=== PATIENT | female | born 1975 | race Caucasian/White ===

== ENCOUNTER 2017-03-13 22:09 | Emergency (ER) | payer OTHER ==
[2017-03-13 22:25] VITALS: BP 106/55; RESP 18; TEMP 98
[2017-03-13] MEDS ORDERED: Acetaminophen-Codeine 300-30mg TAB PO STA (22:39)
[2017-03-13] MEDS ORDERED: ACETAMINOPHEN TAB 325 MG TAB PO STA (22:39)
[2017-03-13] MEDS ORDERED: IPRATROPIUM-ALBUTEROL 3 ML NEB INHALATION STA (22:39)
[2017-03-13] MEDS ORDERED: DEXAMETHASONE SOD PHOSPHATE 10 MG/ML 1 ML VIAL IM STA (22:39)
[2017-03-13] MEDS ORDERED: IBUPROFEN 800 MG TAB PO STA (22:39)
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
[2017-03-13] MEDS ORDERED: ALBUTEROL NEB (CONC) 2.5 MG/0.5 ML INHALATION STA (22:50)
[2017-03-13] MEDS ORDERED: IPRATROPIUM 0.5 MG/2.5 ML NEBU INHALATION STA (22:51)
[2017-03-13 23:16] VITALS: PULSE 88
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
== END 2017-03-14 00:21 | disposition home or self-care (01) ==
LOC: EC 22:09
DX: J45.909 Unspecified asthma, uncomplicated (principal); J20.9 Acute bronchitis, unspecified; J06.9 Acute upper respiratory infection, unspecified; F41.9 Anxiety disorder, unspecified; F17.210 Nicotine dependence, cigarettes, uncomplicated; Z79.899 Other long term (current) drug therapy; Z88.0 Allergy status to penicillin; Z83.6 Family history of other diseases of the respiratory system
CPT/HCPCS: 94640; 71020; 99284; 96372; J1100

== ENCOUNTER 2017-05-04 11:39 | Emergency (ER) | payer OTHER ==
[2017-05-04] MEDS ORDERED: KETOROLAC 60 MG/2 ML VIAL IM STA (12:05)
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
[2017-05-04 13:14] VITALS: BP 122/83; PULSE 93; RESP 18; TEMP 98
== END 2017-05-04 13:14 | disposition home or self-care (01) ==
LOC: EC 11:39
DX: S83.92XA Sprain of unspecified site of left knee, initial encounter (principal); S93.402A Sprain of unspecified ligament of left ankle, initial encounter; F17.200 Nicotine dependence, unspecified, uncomplicated; Z88.0 Allergy status to penicillin; X50.1XXA Overexertion from prolonged static or awkward postures, initial encounter; Y93.53 Activity, golf
CPT/HCPCS: 99283; 96372; 73562; 73610; J1885

== ENCOUNTER → 2017-07-04 | Outpatient (CLI) | payer OTHER ==
--- NOTE | 2017-07-05 11:25 | MM ---
Reason for exam: screening (asymptomatic). Last mammogram was performed 1 year ago. History: Patient has history of other cancer at age 23. Family history of breast cancer in 3 maternal aunts and breast cancer in paternal aunt. Physical Findings: A clinical breast exam by your physician is recommended on an annual basis and results should be correlated with mammographic findings. MG Screening Mammo w CAD Bilateral CC and MLO view(s) were taken. Prior study comparison: June 29, 2016, bilateral MG screening mammo w CAD. June 17, 2015, bilateral MG screening mammo w CAD. The breast tissue is heterogeneously dense. This may lower the sensitivity of mammography. No suspicious abnormality. ASSESSMENT: Negative, BI-RAD 1 RECOMMENDATION: Routine screening mammogram of both breasts in 1 year.
== END | disposition home or self-care (01) ==
LOC: RADMAMWWP 13:12
PROVIDERS: ATTEND Internal Medicine
DX: Z12.31 Encounter for screening mammogram for malignant neoplasm of breast (principal)

== ENCOUNTER → 2018-01-01 | Outpatient (CLI) | payer OTHER ==
--- NOTE | 2018-01-01 11:56 | XR ---
EXAMINATION TYPE: XR foot complete RT DATE OF EXAM: 01/01/2018 COMPARISON: NONE HISTORY: Pain TECHNIQUE: Three views are submitted. FINDINGS: The osseous structures are intact and the joint spaces are preserved. There is no acute fracture or dislocation. IMPRESSION: 1. No acute fracture or dislocation. If symptoms persist, follow-up exam in 7 to 10 days could be ob tained.
== END | disposition home or self-care (01) ==
LOC: RADXRMAIN 11:25
PROVIDERS: ATTEND Internal Medicine
DX: M79.671 Pain in right foot (principal); R22.41 Localized swelling, mass and lump, right lower limb

== ENCOUNTER 2018-01-18 00:05 | Emergency (ER) | payer OTHER ==
[2018-01-18] MEDS ORDERED: NITROGLYCERIN OINT 1 INCH/GM PACKET TOPICAL STA (00:28)
[2018-01-18] MEDS ORDERED: MORPHINE SULFATE 4 MG/ML SYRINGE IV STA (00:28)
[2018-01-18] MEDS ORDERED: ONDANSETRON 4 MG/2 ML VIAL IVP STA (00:28)
[2018-01-18] MEDS ORDERED: SODIUM CHLORIDE 0.9% 1,000 ML IV STA (00:28)
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
[2018-01-18 00:39] LABS: Basophils # (A) 0.1 k/uL (0-0.2); Basophils % (A) 1 %; Eosinophils # (A) 0.2 k/uL (0-0.7); Eosinophils % (A) 1 %; HCT 43.2 % (34.0-46.0); HGB 14.9 gm/dL (11.4-16.0); Lymphocytes # (A) 4.7 k/uL (1.0-4.8); Lymphocytes % (A) 34 %; MCH 30.1 pg (25.0-35.0); MCHC 34.5 g/dL (31.0-37.0); MCV 87.2 fL (80.0-100.0); Monocytes # (A) 0.7 k/uL (0-1.0); Monocytes % (A) 5 %; Neutrophils # (A) 7.8 k/uL (1.3-7.7); Neutrophils % (A) 57 %; Platelet Count 305 k/uL (150-450); RBC 4.95 m/uL (3.80-5.40); RDW 13.3 % (11.5-15.5); WBC 13.6 k/uL (3.8-10.6)
[2018-01-18 00:48] LABS: ALT 26 U/L (9-52); AST 15 U/L (14-36); Alkaline Phosphatase 101 U/L (38-126); Anion Gap 9 mmol/L; Blood Urea Nitrogen 13 mg/dL (7-17); Calcium 9.6 mg/dL (8.4-10.2); Carbon Dioxide 24 mmol/L (22-30); Chloride 106 mmol/L (98-107); Glucose 105 mg/dL (74-99); Magnesium 1.8 mg/dL (1.6-2.3); Potassium 4.2 mmol/L (3.5-5.1); Sodium 139 mmol/L (137-145); Total Bilirubin 0.2 mg/dL (0.2-1.3); Total Protein 7.1 g/dL (6.3-8.2)
[2018-01-18 00:53] LABS: D-Dimer 0.38 mg/L FEU (<0.60)
[2018-01-18 00:57] LABS: INR 0.9 (<1.2); Partial Thromboplastin Time 23.8 sec (22.0-30.0); Prothrombin Time 9.4 sec (9.0-12.0)
[2018-01-18 00:58] LABS: Creatine Kinase 45 U/L (30-135)
[2018-01-18 01:12] LABS: Creatine Kinase MB 0.4 ng/mL (0.0-2.4); Troponin I <0.012 ng/mL (0.000-0.034)
--- NOTE | 2018-01-18 01:20 | CT ---
EXAMINATION TYPE: CT brain wo con DATE OF EXAM: 01/18/2018 COMPARISON: NONE HISTORY: headache CT DLP: 926.50 mGycm. Automated Exposure Control for Dose Reduction was Utilized. TECHNIQUE: CT scan of the head is performed without contrast. FINDINGS: Ventricles and sulci appear normal. There is no mass effect nor midline shift. There is n o sign of intracranial hemorrhage. The calvarium is intact. CONCLUSION: Normal CT scan of the brain.
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
[2018-01-18 01:56] VITALS: BP 135/78; PULSE 98; RESP 18; TEMP 98.2
== END 2018-01-18 01:56 | disposition home or self-care (01) ==
LOC: EC 00:05
DX: J40 Bronchitis, not specified as acute or chronic (principal); I10 Essential (primary) hypertension; R51 Headache; D72.829 Elevated white blood cell count, unspecified; F41.9 Anxiety disorder, unspecified; R07.81 Pleurodynia; M79.601 Pain in right arm; M79.602 Pain in left arm; F17.200 Nicotine dependence, unspecified, uncomplicated; Z88.0 Allergy status to penicillin; Z97.8 Presence of other specified devices; Z82.5 Family history of asthma and other chronic lower respiratory diseases; Z82.49 Family history of ischemic heart disease and other diseases of the circulatory system
CPT/HCPCS: 99285; 96374; 96375; 96361; 36415; 93005; 85379; 80053; 82550; 82553; 83735; 84484; 85025; 85610; 85730; 71046; 70450; J2270; J2405

== ENCOUNTER 2018-04-08 14:53 | Observation (INO) | payer OTHER ==
[2018-04-08] MEDS ORDERED: ASPIRIN 81 MG PO STA (15:29)
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
[2018-04-08] MEDS: NITROGLYCERIN SL TABS 0.4 MG TAB SUBLINGUAL STA ×2 (16:13→16:23)
[2018-04-08 16:18] LABS: Basophils # (A) 0.1 k/uL (0-0.2); Basophils % (A) 0 %; Eosinophils # (A) 0.1 k/uL (0-0.7); Eosinophils % (A) 1 %; HCT 45.5 % (34.0-46.0); Lymphocytes # (A) 3.3 k/uL (1.0-4.8); Lymphocytes % (A) 27 %; MCH 29.7 pg (25.0-35.0); MCV 90.1 fL (80.0-100.0); Mean Platelet Volume 6.5; Monocytes # (A) 0.5 k/uL (0-1.0); Monocytes % (A) 4 %; Neutrophils # (A) 8.2 k/uL (1.3-7.7); Neutrophils % (A) 67 %; Platelet Count 272 k/uL (150-450); RBC 5.05 m/uL (3.80-5.40); RDW 13.9 % (11.5-15.5); WBC 12.2 k/uL (3.8-10.6)
[2018-04-08 16:20] LABS: ALT 26 U/L (9-52); AST 22 U/L (14-36); Albumin 4.2 g/dL (3.5-5.0); Alkaline Phosphatase 95 U/L (38-126); Anion Gap 11 mmol/L; Blood Urea Nitrogen 6 mg/dL (7-17); Calcium 9.3 mg/dL (8.4-10.2); Carbon Dioxide 20 mmol/L (22-30); Chloride 108 mmol/L (98-107); Glucose 95 mg/dL (74-99); Magnesium 1.7 mg/dL (1.6-2.3); Potassium 4.4 mmol/L (3.5-5.1); Sodium 139 mmol/L (137-145); Total Bilirubin 0.5 mg/dL (0.2-1.3); Total Protein 6.9 g/dL (6.3-8.2)
[2018-04-08 16:27] LABS: D-Dimer 0.32 mg/L FEU (<0.60); Partial Thromboplastin Time 22.8 sec (22.0-30.0); Prothrombin Time 9.6 sec (9.0-12.0)
[2018-04-08 16:30] LABS: Creatine Kinase 48 U/L (30-135)
[2018-04-08 16:43] LABS: Creatine Kinase MB 0.4 ng/mL (0.0-2.4); Troponin I <0.012 ng/mL (0.000-0.034)
--- NOTE | 2018-04-08 17:01 | XR ---
EXAMINATION TYPE: XR chest 2V DATE OF EXAM: 04/08/2018 COMPARISON: 01/18/2018 HISTORY: Chest pain TECHNIQUE: Frontal and lateral views of the chest are obtained. FINDINGS: There is no focal air space opacity. No evidence for pneumothorax. No pleural effusion. The cardiac silhouette size is within normal limits. The osseous structures are grossly intact. IMPRESSION: 1. No acute cardiopulmonary process.
[2018-04-08] MEDS ORDERED: NITROGLYCERIN SL TABS 0.4 MG TAB SUBLINGUAL PRN (17:25)
[2018-04-08] MEDS ORDERED: SODIUM CHLORIDE 0.9% 1,000 ML IV ONE (17:25)
[2018-04-08 18:29] VITALS: RESP 16
[2018-04-08 22:03] LABS: Appearance,Urine Cloudy (Clear); Bacteria,Urine Rare /hpf; Bilirubin,Urine Negative (Negative); Blood,Urine Large (Negative); Color,Urine Light Red; Glucose,Urine (UA) Negative (Negative); Ketones,Urine Negative (Negative); Leukocyte Esterase,Urine Small (Negative); Mucus,Urine Rare /hpf; Nitrite,Urine Negative (Negative); Protein,Urine 1+ (Negative); RBC,Urine >182 /hpf (0-5); Specific Gravity,Urine 1.016 (1.001-1.035); Squamous Epithelial Cell,Urine 11 /hpf (0-4); Urobilinogen,Urine <2.0 mg/dL (<2.0); WBC,Urine 7 /hpf (0-5)
[2018-04-08 23:30] LABS: Creatine Kinase MB 0.4 ng/mL (0.0-2.4); Troponin I 0.017 ng/mL (0.000-0.034)
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
[2018-04-09 04:01] LABS: Cholesterol 181 mg/dL (<200); HDL Cholesterol 37 mg/dL (40-60); LDL Cholesterol,Calculated 95 mg/dL (0-99); Triglycerides 244 mg/dL (<150)
[2018-04-09 04:22] LABS: Creatine Kinase 43 U/L (30-135)
[2018-04-09 04:35] LABS: Creatine Kinase MB 0.4 ng/mL (0.0-2.4); Troponin I <0.012 ng/mL (0.000-0.034)
[2018-04-09] MEDS ORDERED: ASPIRIN 325 MG TAB PO SCH (09:00)
[2018-04-09] MEDS ORDERED: NICOTINE 14MG/24HR PATCH TRANSDERM SCH (09:00)
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
[2018-04-09 12:55] VITALS: BP 112/64; PULSE 63; TEMP 97.9
--- NOTE | 2018-04-09 13:00 | ECHOS ---
STRESS ECHOCARDIOGRAM DATE OF SERVICE: 04/09/2018 INDICATIONS: Chest pain. MEDICATIONS: BASELINE HEART RATE: 81 BASELINE BLOOD PRESSURE: 108/73 MAXIMUM HEART RATE: 157 MAXIMUM BLOOD PRESSURE: 143/77 85% MPHR: 151 100% MPHR: 178 METS: 10.3 MAXIMUM STAGE REACHED: II TOTAL EXERCISE TIME: 8:51 CLINICAL INFORMATION: Baseline rhythm is sinus mechanism, rate of 81, normal axis and intervals, normal electrocardiogram. Baseline blood pressure 108/73 mmHg. Patient exercised on Collin protocol for 8 minutes 51 seconds achieving peak rate of 157 beats per minute, which is equal to 88% of maximum predicted heart rate. Peak blood pressure 143/77 mmHg. Test was terminated secondary to fatigue. There was no chest pain. Electrocardiograph monitoring revealed no evidence of diagnostic ischemic ST deviation. Baseline echocardiogram revealed normal wall normal motion. At peak exercise, there was normal wall motion augmentation with no hypokinesis or dyskinesis. CONCLUSION: 1. Average exercise tolerance with normal electrocardiograph response to exercise. 2. Normal stress echocardiogram with no evidence of stress induced ischemia. MMODL / IJN: [id number] / MTDD
[2018-04-09 14:42] VITALS: BMI 40.4
--- NOTE | 2018-04-10 19:22 | P.DS ---
Providers Date of admission: 04/08/18 17:23 Expected date of discharge: 04/09/18 Attending physician: Red Rebolledo MD Consults: 04/08/18 17:25 Consult Physician Stat Consulting Provider: [facility] Consult Reason/Comments: chest pain Do you want consulting provider notified?: Yes Primary care physician: Marvin Aldana Hospital Course: Discharge diagnosis Atypical chest pain. Rule out ACS. Stress echo negative for any inducible ischemia. Nicotine addiction Family history of premature coronary artery disease Hospital course Patient is a 5-year-old female with known history of smoking 2 packs per day currently cutting down to 6 cigarettes per day and family history of coronary artery disease came to also complains of midsternal chest pain sharp stabbing in nature associated with diaphoretic and shortness of breath and nausea. Patient was admitted to hospital and admitted to telemetry unit. Serial EKGs and troponins are negative. D-dimer is not elevated. Chest x-ray showed no acute cardio pulmonary process. Blood pressure is controlled otherwise triglycerides 244 and demanding laboratory data is essentially negative. Patient was seen by cardiology and recommended stress echocardiogram and which is a negative study. Otherwise patient is currently chest pain-free and is stable to be discharged home. Serial EKGs and troponins are negative. Discharge physical examination was done and vitals reviewed. Vital Signs 04/08/18 04/08/18 04/08/18 14:57 15:18 15:22 Temperature 98.2 F Pulse Rate 117 H Pulse Rate [ 90 Bilateral Sitting Radial] Respiratory 18 20 Rate Blood Pressure 143/68 Blood Pressure [Left Arm] O2 Sat by Pulse 97 Oximetry 04/08/18 04/08/18 04/08/18 16:14 18:28 19:00 Temperature 98.5 F 98.5 F Pulse Rate 98 91 91 Pulse Rate [ Bilateral Sitting Radial] Respiratory 18 16 16 Rate Blood Pressure 138/72 127/86 127/86 Blood Pressure [Left Arm] O2 Sat by Pulse 97 98 98 Oximetry 04/08/18 04/08/18 04/08/18 22:21 22:29 22:44 Temperature 97.9 F 97.9 F Pulse Rate Pulse Rate [ 75 84 75 Bilateral Sitting Radial] Respiratory 16 16 16 Rate Blood Pressure Blood Pressure 127/85 115/70 127/85 [Left Arm] O2 Sat by Pulse 96 93 L 96 Oximetry 04/08/18 04/08/1804/09/18 23:00 23:10 04:30 Temperature 98.0 F 97.9 F Pulse Rate Pulse Rate [ 80 80 88 Bilateral Sitting Radial] Respiratory 16 16 Rate Blood Pressure Blood Pressure 119/76 123/71 [Left Arm] O2 Sat by Pulse 97 97 Oximetry 04/09/18 04/09/18 04/09/18 08:00 12:53 12:57 Temperature 97.5 F L 97.9 F Pulse Rate Pulse Rate [ 75 63 63 Bilateral Sitting Radial] Respiratory 16 16 16 Rate Blood Pressure Blood Pressure 114/73 112/64 [Left Arm] O2 Sat by Pulse 97 95 Oximetry Patient Condition at Discharge: Good Plan - Discharge Summary Discharge Rx Participant: No New Discharge Prescriptions: Continue Acetaminophen [Tylenol] 1,000 mg PO Q4-6H PRN PRN Reason: Pain Discharge Medication List Acetaminophen [Tylenol] 1,000 mg PO Q4-6H PRN 05/04/17 [History] Follow up Appointment(s)/Referral(s): Stefanie August MD [STAFF PHYSICIAN] - 3 Weeks (Spoke to Nikky. Office will call with appointment time.) Jovan Wong MD [Primary Care Provider] - 04/16/18 1:40 pm (Sunday) Patient Instructions/Handouts: Chest Pain (DC) Discharge Disposition: HOME SELF-CARE
== END 2018-04-09 17:26 | disposition home or self-care (01) ==
LOC: EC 14:53 → 6SEL 17:23
PROVIDERS: ADMIT Internal Medicine; ATTEND Internal Medicine
DX: R07.89 Other chest pain (principal); R61 Generalized hyperhidrosis; R06.02 Shortness of breath; R11.0 Nausea; F17.210 Nicotine dependence, cigarettes, uncomplicated; M19.90 Unspecified osteoarthritis, unspecified site; F41.9 Anxiety disorder, unspecified; F40.240 Claustrophobia; D72.829 Elevated white blood cell count, unspecified; M54.9 Dorsalgia, unspecified; Z18.10 Retained metal fragments, unspecified; Z90.49 Acquired absence of other specified parts of digestive tract; Z88.0 Allergy status to penicillin; Z87.828 Personal history of other (healed) physical injury and trauma; Z82.49 Family history of ischemic heart disease and other diseases of the circulatory system; Z82.5 Family history of asthma and other chronic lower respiratory diseases; Z82.61 Family history of arthritis; Z83.49 Family history of other endocrine, nutritional and metabolic diseases
CPT/HCPCS: 99285 ×2; 36415; 93005; 85379; 80061; 80053; 82550 ×2; 82553 ×2; 83735; 84484 ×2; 85025; 85610; 85730; 81001; 84703; 71046; G0378 ×2; C8930; S4990; Q9950; 93351

== ENCOUNTER 2018-10-30 13:56 | Emergency (ER) | payer OTHER ==
[2018-10-30 17:07] VITALS: RESP 18
[2018-10-30] MEDS ORDERED: KETOROLAC 60 MG/2 ML VIAL IM STA (17:12)
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
[2018-10-30 19:31] LABS: Appearance,Urine Cloudy (Clear); Bilirubin,Urine Negative (Negative); Blood,Urine Large (Negative); Color,Urine Yellow; Glucose,Urine (UA) Negative (Negative); Ketones,Urine Negative (Negative); Leukocyte Esterase,Urine Negative (Negative); Mucus,Urine Occasional /hpf; Nitrite,Urine Negative (Negative); PH, Urine 5.5 (5.0-8.0); Protein,Urine Negative (Negative); RBC,Urine 2 /hpf (0-5); Specific Gravity,Urine 1.019 (1.001-1.035); Squamous Epithelial Cell,Urine 8 /hpf (0-4); Urobilinogen,Urine <2.0 mg/dL (<2.0); WBC,Urine 4 /hpf (0-5)
[2018-10-30 20:16] VITALS: BP 115/69; PULSE 62; TEMP 97.9
== END 2018-10-30 20:15 | disposition home or self-care (01) ==
LOC: EC 13:56
DX: S39.012A Strain of muscle, fascia and tendon of lower back, initial encounter (principal); R32 Unspecified urinary incontinence; F17.200 Nicotine dependence, unspecified, uncomplicated; Z88.0 Allergy status to penicillin; X50.9XXA Other and unspecified overexertion or strenuous movements or postures, initial encounter; Y93.89 Activity, other specified
CPT/HCPCS: 81001; 87086; 72131; 99284; 96372; J1885

== ENCOUNTER 2019-02-05 14:39 | Emergency (ER) | payer OTHER ==
[2019-02-05 14:43] VITALS: RESP 18
[2019-02-05] MEDS ORDERED: MORPHINE SULFATE 4 MG/ML SYRINGE IVP STA (14:58)
[2019-02-05] MEDS ORDERED: ACETAMINOPHEN TAB 500 MG TAB PO STA (14:59)
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
[2019-02-05] MEDS ORDERED: ONDANSETRON 4 MG/2 ML VIAL IVP STA (15:10)
[2019-02-05] MEDS ORDERED: SODIUM CHLORIDE 0.9% 1,000 ML IV STA (15:10)
[2019-02-05 15:27] LABS: Appearance,Urine Clear (Clear); Bilirubin,Urine Negative (Negative); Blood,Urine Negative (Negative); Color,Urine Light Yellow; Glucose,Urine (UA) Negative (Negative); Ketones,Urine Negative (Negative); Leukocyte Esterase,Urine Negative (Negative); Nitrite,Urine Negative (Negative); Protein,Urine Negative (Negative); Specific Gravity,Urine 1.007 (1.001-1.035); Urobilinogen,Urine <2.0 mg/dL (<2.0)
[2019-02-05 15:40] LABS: ALT 23 U/L (9-52); AST 15 U/L (14-36); Albumin 4.1 g/dL (3.5-5.0); Alkaline Phosphatase 104 U/L (38-126); Anion Gap 9 mmol/L; Blood Urea Nitrogen 12 mg/dL (7-17); Calcium 9.9 mg/dL (8.4-10.2); Carbon Dioxide 20 mmol/L (22-30); Chloride 108 mmol/L (98-107); Glucose 95 mg/dL (74-99); Potassium 4.7 mmol/L (3.5-5.1); Sodium 137 mmol/L (137-145); Total Bilirubin 0.3 mg/dL (0.2-1.3); Total Protein 7.2 g/dL (6.3-8.2)
[2019-02-05 15:42] LABS: Basophils # (A) 0.1 k/uL (0-0.2); Basophils % (A) 1 %; Eosinophils # (A) 0.1 k/uL (0-0.7); Eosinophils % (A) 1 %; HCT 43.8 % (34.0-46.0); HGB 14.7 gm/dL (11.4-16.0); Lymphocytes # (A) 3.5 k/uL (1.0-4.8); Lymphocytes % (A) 30 %; MCH 29.6 pg (25.0-35.0); MCHC 33.6 g/dL (31.0-37.0); MCV 88.1 fL (80.0-100.0); Mean Platelet Volume 7.1; Monocytes # (A) 0.6 k/uL (0-1.0); Monocytes % (A) 5 %; Neutrophils # (A) 7.2 k/uL (1.3-7.7); Neutrophils % (A) 63 %; Platelet Count 303 k/uL (150-450); RBC 4.97 m/uL (3.80-5.40); RDW 14.6 % (11.5-15.5); WBC 11.5 k/uL (3.8-10.6)
--- NOTE | 2019-02-05 16:24 | CT ---
EXAMINATION TYPE: CT abdomen pelvis w con DATE OF EXAM: 02/05/2019 COMPARISON: 12/15/2009 INDICATION: Right lower quadrant pain DLP: 1257 mGycm, Automated exposure control for dose reduction was used. CONTRAST: 100 mL of Isovue 300. Study performed without Oral Contrast TECHNIQUE: Axial images were obtained from above the diaphragm to the pubic rami in the axial plane a t 5 mm thick sections. Reconstructed images are reviewed on the computer in the coronal plane. FINDINGS: Limited CT sections are obtained the lung bases. Small amount of infiltrate may be within the lingul a near the lung base. There is metallic density in the posterior left lung base with metallic scatter artifact present previously.. CT ABDOMEN: Liver: Normal Spleen: Normal Pancreas: Normal Adrenal glands: The adrenal glands are normal. Gallbladder: Surgically absent Kidneys: No masses are evident. No hydronephrosis is present. No cysts are present. There may be a punctate nonobstructing renal stone measuring 0.3 cm in the mid right kidney. Series 201 image 28. Aorta: Normal Inferior vena cava: Normal. CT PELVIS: Loops of bowel within the abdomen and pelvis are normal. Study is performed without oral contrast limiting bowel evaluation. Appendix: Normal as visualized. No suspicious tubular structures or inflammatory changes are evident. Urinary bladder: Normal. Genitourinary structures: Uterus is normal. Adnexal regions are clear. No free fluid is within the pe lvis. Osseous structures: No suspicious lytic or sclerotic lesions. IMPRESSIONS: 1. No acute abnormality to account for right lower quadrant pain. The appendix as visualized is norm al. No inflammatory changes are evident. Uterus and adnexal regions are within normal limits.
[2019-02-05 17:03] VITALS: BP 126/86; PULSE 90; TEMP 98.5
== END 2019-02-05 17:03 | disposition home or self-care (01) ==
LOC: EC 14:39
DX: R10.31 Right lower quadrant pain (principal); R11.0 Nausea; R53.81 Other malaise; D72.829 Elevated white blood cell count, unspecified; F17.200 Nicotine dependence, unspecified, uncomplicated; Z87.828 Personal history of other (healed) physical injury and trauma; Z90.49 Acquired absence of other specified parts of digestive tract; Z98.51 Tubal ligation status; Z98.890 Other specified postprocedural states; Z79.1 Long term (current) use of non-steroidal anti-inflammatories (NSAID); Z88.0 Allergy status to penicillin
CPT/HCPCS: 36415; 80053; 85025; 81003; 74177; 99284; 96374; 96375; 96361 ×2; J2270; J2405; Q9967

== ENCOUNTER 2019-07-31 20:17 | Emergency (ER) | payer BC, OTHER ==
[2019-07-31 20:53] VITALS: BP 129/78; PULSE 100; RESP 18; TEMP 98.5
[2019-07-31] MEDS ORDERED: KETOROLAC 30 MG/ML 1 ML VIAL IM STA (21:10)
--- NOTE | 2019-07-31 21:28 | XR ---
EXAMINATION TYPE: XR ankle complete LT DATE OF EXAM: 07/31/2019 COMPARISON: NONE HISTORY: Pain TECHNIQUE: 3 views FINDINGS: Ankle mortise is anatomic. I see no fracture nor dislocation. Joint spaces are normal. IMPRESSION: Negative left ankle exam. No fracture.
--- NOTE | 2019-07-31 21:29 | XR ---
EXAMINATION TYPE: XR foot complete LT DATE OF EXAM: 07/31/2019 COMPARISON: NONE HISTORY: Foot and ankle pain TECHNIQUE: 3 views FINDINGS: Metatarsals are intact. I see no fracture nor dislocation. There are no erosions. Joint spa yuriy are normal. IMPRESSION: No fracture seen.
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
== END 2019-07-31 22:09 | disposition home or self-care (01) ==
LOC: EC 20:17
DX: S93.402A Sprain of unspecified ligament of left ankle, initial encounter (principal); R60.9 Edema, unspecified; F17.200 Nicotine dependence, unspecified, uncomplicated; Z79.1 Long term (current) use of non-steroidal anti-inflammatories (NSAID); Z88.0 Allergy status to penicillin; Z98.890 Other specified postprocedural states; X50.0XXA Overexertion from strenuous movement or load, initial encounter; Y92.009 Unspecified place in unspecified non-institutional (private) residence as the place of occurrence of the external cause
CPT/HCPCS: 73610; 73630; 96372; 99283; J1885

== ENCOUNTER 2020-07-08 02:42 | Emergency (ER) | payer BC, OTHER ==
[2020-07-08] MEDS ORDERED: MORPHINE SULFATE 4 MG/ML SYRINGE IV STA (03:12)
[2020-07-08] MEDS ORDERED: SODIUM CHLORIDE 0.9% 1,000 ML IV STA (03:12)
[2020-07-08 03:27] LABS: HCT 46.9 % (34.0-46.0); HGB 15.2 gm/dL (11.4-16.0); MCH 30.5 pg (25.0-35.0); MCHC 32.3 g/dL (31.0-37.0); MCV 94.3 fL (80.0-100.0); Mean Platelet Volume 7.3; Platelet Count 329 k/uL (150-450); RBC 4.97 m/uL (3.80-5.40); RDW 13.4 % (11.5-15.5); WBC 15.2 k/uL (3.8-10.6)
[2020-07-08 03:40] LABS: ALT 15 U/L (4-34); AST 19 U/L (14-36); African American GFR (CKD) >90 (>60 ml/min/1.73 sqM); Alkaline Phosphatase 90 U/L (38-126); Anion Gap 7 mmol/L; Blood Urea Nitrogen 12 mg/dL (7-17); Calcium 9.8 mg/dL (8.4-10.2); Carbon Dioxide 22 mmol/L (22-30); Chloride 105 mmol/L (98-107); Glucose 105 mg/dL (74-99); Non-African American GFR(CKD) >90 (>60 ml/min/1.73 sqM); Potassium 4.5 mmol/L (3.5-5.1); Sodium 134 mmol/L (137-145); Total Bilirubin 0.2 mg/dL (0.2-1.3); Total Protein 6.8 g/dL (6.3-8.2)
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
[2020-07-08 04:00] LABS: Appearance,Urine Clear (Clear); Bilirubin,Urine Negative (Negative); Blood,Urine Negative (Negative); Color,Urine Light Yellow; Glucose,Urine (UA) Negative (Negative); Ketones,Urine Negative (Negative); Leukocyte Esterase,Urine Negative (Negative); Nitrite,Urine Negative (Negative); Protein,Urine Negative (Negative); Specific Gravity,Urine 1.006 (1.001-1.035); Urobilinogen,Urine <2.0 mg/dL (<2.0)
[2020-07-08 04:05] LABS: Band Neutrophils % 2 %; Lymphocytes # (M) 8.21 k/uL (1.0-4.8); Monocytes # (M) 0.76 k/uL (0-1.0); Neutrophils % (M) 37 %; Nucleated Red Blood Cells 0 /100 WBC (0-0); Total Cells Counted 100
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
[2020-07-08] MEDS ORDERED: ACET/COD 300 MG/30 MG STARTER PACK 6 TAB BTL PO STA (04:21)
[2020-07-08 04:38] VITALS: BP 126/86; PULSE 88; RESP 18; TEMP 98.7
== END 2020-07-08 04:39 | disposition home or self-care (01) ==
LOC: EC 02:42
DX: R10.9 Unspecified abdominal pain (principal); R07.81 Pleurodynia; D72.829 Elevated white blood cell count, unspecified; F17.200 Nicotine dependence, unspecified, uncomplicated; Z79.1 Long term (current) use of non-steroidal anti-inflammatories (NSAID); Z88.0 Allergy status to penicillin; Z87.828 Personal history of other (healed) physical injury and trauma; Z90.49 Acquired absence of other specified parts of digestive tract; Z98.890 Other specified postprocedural states
CPT/HCPCS: 36415; 93005; 85379; 80053; 83735; 84484; 85025; 81003; 71046; 96374; 96361; 99284; J2270

== ENCOUNTER 2021-07-12 15:46 | Emergency (ER) | payer BC, OTHER ==
[2021-07-12 16:30] VITALS: BP 131/83; PULSE 105; RESP 18; TEMP 98
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
== END 2021-07-12 18:24 | disposition home or self-care (01) ==
LOC: EC 15:46
DX: J06.9 Acute upper respiratory infection, unspecified (principal); J45.909 Unspecified asthma, uncomplicated; F17.200 Nicotine dependence, unspecified, uncomplicated; Z20.822 Contact with and (suspected) exposure to COVID-19; Z88.0 Allergy status to penicillin
CPT/HCPCS: 71046; 87635; 99283

== ENCOUNTER 2021-08-02 13:31 | Emergency (ER) | payer BC ==
[2021-08-02 13:47] VITALS: TEMP 98.7
[2021-08-02 14:23] LABS: Basophils # (A) 0.1 k/uL (0-0.2); Basophils % (A) 0 %; Eosinophils # (A) 0.2 k/uL (0-0.7); Eosinophils % (A) 1 %; HCT 47.6 % (34.0-46.0); HGB 15.6 gm/dL (11.4-16.0); Lymphocytes # (A) 3.5 k/uL (1.0-4.8); Lymphocytes % (A) 27 %; MCH 31.3 pg (25.0-35.0); MCHC 32.8 g/dL (31.0-37.0); MCV 95.5 fL (80.0-100.0); Mean Platelet Volume 7.4; Monocytes # (A) 0.7 k/uL (0-1.0); Monocytes % (A) 6 %; Neutrophils # (A) 8.1 k/uL (1.3-7.7); Neutrophils % (A) 64 %; Platelet Count 299 k/uL (150-450); RBC 4.98 m/uL (3.80-5.40); RDW 13.1 % (11.5-15.5); WBC 12.7 k/uL (3.8-10.6)
[2021-08-02 14:32] LABS: INR 0.9 (<1.2); Partial Thromboplastin Time 22.6 sec (22.0-30.0); Prothrombin Time 9.7 sec (9.0-12.0)
[2021-08-02 14:36] LABS: ALT 13 U/L (4-34); AST 16 U/L (14-36); African American GFR (CKD) >90 (>60 ml/min/1.73 sqM); Albumin 3.9 g/dL (3.5-5.0); Alkaline Phosphatase 86 U/L (38-126); Anion Gap 6 mmol/L; Blood Urea Nitrogen 7 mg/dL (7-17); Calcium 9.5 mg/dL (8.4-10.2); Carbon Dioxide 18 mmol/L (22-30); Chloride 110 mmol/L (98-107); Glucose 116 mg/dL (74-99); Magnesium 2.1 mg/dL (1.6-2.3); Non-African American GFR(CKD) >90 (>60 ml/min/1.73 sqM); Sodium 134 mmol/L (137-145); Total Bilirubin 0.4 mg/dL (0.2-1.3); Total Protein 6.9 g/dL (6.3-8.2)
[2021-08-02 14:39] LABS: Appearance,Urine Clear (Clear); Bilirubin,Urine Negative (Negative); Blood,Urine Negative (Negative); Color,Urine Colorless; Glucose,Urine (UA) Negative (Negative); Ketones,Urine Negative (Negative); Leukocyte Esterase,Urine Negative (Negative); Nitrite,Urine Negative (Negative); Protein,Urine Negative (Negative); Specific Gravity,Urine 1.002 (1.001-1.035); Urobilinogen,Urine <2.0 mg/dL (<2.0)
--- NOTE | 2021-08-02 14:51 | XR ---
EXAMINATION TYPE: XR chest 2V DATE OF EXAM: 08/02/2021 COMPARISON: NONE HISTORY: Chest pain TECHNIQUE: Frontal and lateral views of the chest are obtained. FINDINGS: There is no focal air space opacity. No evidence for pneumothorax. No pleural effusion. The cardiac silhouette size is within normal limits. The osseous structures are grossly intact. IMPRESSION: 1. No acute cardiopulmonary process.
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
[2021-08-02 15:52] VITALS: RESP 16
[2021-08-02] MEDS ORDERED: IBUPROFEN 600 MG TAB PO STA (16:41)
[2021-08-02 17:10] VITALS: BP 124/91; PULSE 80
== END 2021-08-02 17:18 | disposition home or self-care (01) ==
LOC: EC 13:31
DX: R07.9 Chest pain, unspecified (principal); R06.02 Shortness of breath; F17.200 Nicotine dependence, unspecified, uncomplicated; Z20.822 Contact with and (suspected) exposure to COVID-19; Z88.0 Allergy status to penicillin
CPT/HCPCS: 36415; 71046; 80053; 81003; 83735; 84484; 85025; 85610; 85730; 87635; 93005; 99285

== ENCOUNTER 2021-09-20 12:06 | Emergency (ER) | payer BC ==
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
[2021-09-20] MEDS ORDERED: SODIUM CHLORIDE 0.9% 500 ML 500 ML IV STA (15:18)
[2021-09-20] MEDS ORDERED: PANTOPRAZOLE 40 MG/10 ML VIAL IVP STA (15:25)
[2021-09-20] MEDS ORDERED: SODIUM CHLORIDE 0.9% 50 ML IVPB ONE (16:15)
[2021-09-20] MEDS ORDERED: BAMLANIVIMAB (EUA) 700 MG, ETESEVIMAB (EUA) 1,400 MG in SODIUM CHLORIDE 0.9% 50 ML IVPB ONE (16:30)
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
[2021-09-20 17:06] VITALS: RESP 16
[2021-09-20 18:16] VITALS: BP 129/86; PULSE 85; TEMP 98
[2021-09-20] MEDS ORDERED: PANTOPRAZOLE 40 MG/10 ML VIAL IVP SCH (21:00)
== END 2021-09-20 18:00 | disposition home or self-care (01) ==
LOC: EC 12:06
DX: U07.1 COVID-19 (principal); F17.200 Nicotine dependence, unspecified, uncomplicated; Z90.49 Acquired absence of other specified parts of digestive tract; Z88.1 Allergy status to other antibiotic agents
CPT/HCPCS: 93005; 87635; 71046; 99285; 96374; C9113; J3490

== ENCOUNTER 2022-03-16 09:33 | Emergency (ER) | payer BC ==
[2022-03-16 09:48] VITALS: TEMP 98.1
[2022-03-16] MEDS ORDERED: KETOROLAC 15 MG/ML 1 ML VIAL IVP STA (10:10)
[2022-03-16] MEDS ORDERED: ASPIRIN 81 MG PO STA (10:10)
[2022-03-16] MEDS ORDERED: MORPHINE SULFATE 2 MG/ML SYRINGE IVP STA (10:10)
[2022-03-16] MEDS ORDERED: SODIUM CHLORIDE 0.9% 1,000 ML IV STA (10:11)
[2022-03-16 10:28] LABS: Basophils % (A) 1 %; Eosinophils # (A) 0.1 k/uL (0-0.7); Eosinophils % (A) 2 %; HCT 43.1 % (34.0-46.0); HGB 13.9 gm/dL (11.4-16.0); Lymphocytes # (A) 1.3 k/uL (1.0-4.8); Lymphocytes % (A) 23 %; MCH 30.4 pg (25.0-35.0); MCHC 32.2 g/dL (31.0-37.0); MCV 94.3 fL (80.0-100.0); Mean Platelet Volume 7.4; Monocytes # (A) 0.3 k/uL (0-1.0); Monocytes % (A) 5 %; Neutrophils # (A) 3.6 k/uL (1.3-7.7); Neutrophils % (A) 67 %; Platelet Count 245 k/uL (150-450); RBC 4.58 m/uL (3.80-5.40); RDW 13.8 % (11.5-15.5); WBC 5.4 k/uL (3.8-10.6)
[2022-03-16 10:40] LABS: ALT 16 U/L (4-34); AST 20 U/L (14-36); African American GFR (CKD) >90 (>60 ml/min/1.73 sqM); Albumin 3.5 g/dL (3.5-5.0); Alkaline Phosphatase 75 U/L (38-126); Anion Gap 9 mmol/L; Blood Urea Nitrogen 7 mg/dL (7-17); Calcium 8.4 mg/dL (8.4-10.2); Carbon Dioxide 19 mmol/L (22-30); Chloride 107 mmol/L (98-107); Glucose 112 mg/dL (74-99); Magnesium 1.8 mg/dL (1.6-2.3); Non-African American GFR(CKD) >90 (>60 ml/min/1.73 sqM); Potassium 3.9 mmol/L (3.5-5.1); Sodium 135 mmol/L (137-145); Total Bilirubin 0.4 mg/dL (0.2-1.3); Total Protein 6.5 g/dL (6.3-8.2)
[2022-03-16 10:46] LABS: INR 0.9 (<1.2); Partial Thromboplastin Time 25.3 sec (22.0-30.0); Prothrombin Time 9.9 sec (9.0-12.0)
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
--- NOTE | 2022-03-16 12:07 | XR ---
EXAMINATION TYPE: XR chest 2V DATE OF EXAM: 03/16/2022 COMPARISON: 09/20/2021 HISTORY: 46-year-old female with chest pain and body aches TECHNIQUE: PA and lateral views FINDINGS: Heart normal size. Bilateral hilar prominence, possible underlying hilar lymphadenopathy. There is so me retained metallic debris at the left apex and also projecting over the left hemidiaphragm. Mild in terstitial prominence and mild hyperinflation. IMPRESSION: 1. COPD. Chronic to exclude superimposed bronchitis. No focal infiltrate seen. 2. Bilateral hilar prominence. Unable to exclude underlying hilar lymphadenopathy.
[2022-03-16 12:43] VITALS: BP 109/78; PULSE 85; RESP 20
== END 2022-03-16 12:40 | disposition home or self-care (01) ==
LOC: EC 09:33
DX: J40 Bronchitis, not specified as acute or chronic (principal); I25.2 Old myocardial infarction; F17.200 Nicotine dependence, unspecified, uncomplicated; Z88.0 Allergy status to penicillin
CPT/HCPCS: 36415; 93005; 85379; 80053; 83735; 84484; 85025; 85610; 85730; 87635; 71046; 71275; 99285; 96374; 96375; 96361; J2270; J1885; Q9967

== ENCOUNTER 2022-12-06 12:50 | Emergency (ER) | payer OTHER ==
[2022-12-06 13:07] VITALS: BP 131/87; PULSE 100; RESP 20; TEMP 98.3
[2022-12-06] MEDS ORDERED: KETOROLAC 15 MG/ML 1 ML VIAL IM STA (13:27)
[2022-12-06] MEDS ORDERED: HYDROcodone/APAP 5-325MG 1 EACH TAB PO STA (13:27)
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
--- NOTE | 2022-12-06 13:56 | XR ---
EXAMINATION TYPE: XR ankle complete RT DATE OF EXAM: 12/06/2022 COMPARISON: NONE HISTORY: Pain TECHNIQUE: Frontal, lateral and oblique images of the right ankle are obtained. COMPARISON: None. FINDINGS: There is no acute fracture/dislocation evident. The joint spaces appear within normal brady its. The overlying soft tissue appears unremarkable. IMPRESSION: There is no acute fracture or dislocation seen.
--- NOTE | 2022-12-06 14:00 | XR ---
EXAMINATION TYPE: XR foot complete RT DATE OF EXAM: 12/06/2022 CLINICAL HISTORY: pain TECHNIQUE: Frontal, lateral and oblique images of the right foot are obtained. COMPARISON: None. FINDINGS: There is no acute fracture/dislocation evident. The joint spaces appear within normal brady its. The overlying soft tissue appears unremarkable. IMPRESSION: There is no acute fracture or dislocation. ICD 10 NO FRACTURE, INITIAL EVALUATION
[2022-12-06] MEDS ORDERED: ACET/COD 300 MG/30 MG STARTER PACK 6 TAB BTL PO STA (14:26)
== END 2022-12-06 15:09 | disposition home or self-care (01) ==
LOC: EC 12:50
DX: S93.401A Sprain of unspecified ligament of right ankle, initial encounter (principal); I25.2 Old myocardial infarction; F41.9 Anxiety disorder, unspecified; F17.200 Nicotine dependence, unspecified, uncomplicated; Z88.0 Allergy status to penicillin; W00.1XXA Fall from stairs and steps due to ice and snow, initial encounter
CPT/HCPCS: 73610; 73630; 99283; 96372; J1885

== ENCOUNTER → 2023-02-20 | Outpatient (CLI) | payer OTHER ==
--- NOTE | 2023-02-20 11:53 | XR ---
EXAMINATION TYPE: XR ankle complete RT, XR foot complete RT DATE OF EXAM: 02/20/2023 CLINICAL HISTORY: Contusion injury with pain TECHNIQUE: Frontal, lateral and oblique images of the right ankle and foot are obtained. COMPARISON: Right ankle and foot x-rays December 06, 2022. FINDINGS: There is no acute fracture/dislocation evident in the right ankle. The ankle mortise appe ars stable and within normal limits. Mild diffuse soft tissue swelling on current study. There is no acute fracture or dislocation evident in the right foot. The joint spaces in the right f oot are preserved. Redemonstration of accessory ossicle near the lateral base of the cuboid bone. Ov erlying soft tissue shows mild diffuse soft tissue swelling. IMPRESSION: There is no acute fracture or dislocation in the right ankle or foot. No significant lubna nge from priors.
== END | disposition home or self-care (01) ==
LOC: RADXRMAIN 11:10
PROVIDERS: ATTEND Emergency Medicine
DX: S90.01XA Contusion of right ankle, initial encounter (principal); S90.31XA Contusion of right foot, initial encounter; X58.XXXA Exposure to other specified factors, initial encounter

== ENCOUNTER → 2023-02-27 | Outpatient (CLI) | payer OTHER ==
--- NOTE | 2023-02-27 10:22 | XR ---
EXAMINATION TYPE: XR ankle complete RT DATE OF EXAM: 02/27/2023 COMPARISON: 02/20/2023 HISTORY: Pain FINDINGS: Three views of the ankle demonstrate the ankle mortise to be intact and symmetric. The joint spaces are preserved. The osseous structures are intact. Pes planus deformity. Tiny bony density adjacent to the lateral talar IMPRESSION: 1. Tiny bony density adjacent to lateral talar eminence can be associated with a tiny avulsion fractu re correlate with point tenderness..
== END | disposition home or self-care (01) ==
LOC: RADXRMAIN 09:56
PROVIDERS: ATTEND Emergency Medicine
DX: S90.01XD Contusion of right ankle, subsequent encounter (principal)

== ENCOUNTER → 2023-04-09 | Outpatient (CLI) | payer SELFPAY ==
--- NOTE | 2023-04-10 06:52 | US ---
EXAMINATION TYPE: US venous doppler duplex LE RT DATE OF EXAM: 04/09/2023 4:28 PM COMPARISON: NONE CLINICAL INDICATION: Female, 47 years old with history of M25.571 PAIN IN RT ANKLE; rt ankle injury l ate February SIDE PERFORMED: Right TECHNIQUE: The lower extremity deep venous system is examined utilizing real time linear array sonog beth with graded compression, doppler sonography and color-flow sonography. VESSELS IMAGED: Common Femoral Vein Deep Femoral Vein Greater Saphenous Vein * Femoral Vein Popliteal Vein Proximal Calf Veins Dog Races Manager notes: Exam difficult due to body habitus. Additional images taken at the area of concern revealing hyperemia and edema Right Leg: Negative for DVT IMPRESSION: 1. No evidence for DVT within the right lower extremity imaged from the groin to the upper calf. 2. The costume design teacher performed additional scanning at the site of concern along the lateral right ankle . Some edema and hyperemia is noted near. If concern for ligamentous injury, consider MRI.
== END | disposition home or self-care (01) ==
LOC: RADUSWWP 15:48
PROVIDERS: ATTEND Podiatrist
DX: S90.01XD Contusion of right ankle, subsequent encounter (principal); S80.11XD Contusion of right lower leg, subsequent encounter; I80.9 Phlebitis and thrombophlebitis of unspecified site; X58.XXXD Exposure to other specified factors, subsequent encounter

== ENCOUNTER → 2023-04-12 | Outpatient (CLI) | payer OTHER ==
--- NOTE | 2023-04-12 13:28 | US ---
EXAMINATION TYPE: US extremity nonvasc complete RT DATE OF EXAM: 04/12/2023 Comparison: Radiograph 02/27/2023 Clinical History: 47-year-old female S90.01XD, S80.11XD CONTUSION RT LEG, CONTUSION RT ANKLE. Injury 2 months ago. Technique: Targeted ultrasound along the site of patient's pain posterior aspect of the distal right leg and ankle. Findings: Scanning is targeted to the Achilles tendon and Achilles myotendinous junction. There is fusiform thi ckening at the Achilles insertion measuring up to 1.0 cm thick. There is slight hypoechoic signal inv olving the deep fibers with associated hyperemia. In addition, there is a small 7 x 7 mm tear at the medial Achilles insertion. No abnormal fluid in the posterior ankle or retrocalcaneal bursa. Impression: 1. Insertional Achilles tendinosis with thickening up to 1 cm and corresponding hyperkalemia. 2. Concurrent small 7 x 7 mm tear involving the medial Achilles insertion.
== END | disposition home or self-care (01) ==
LOC: RADUSWWP 12:54
PROVIDERS: ATTEND Podiatrist
DX: S90.01XD Contusion of right ankle, subsequent encounter (principal); S80.11XD Contusion of right lower leg, subsequent encounter; E87.5 Hyperkalemia

== ENCOUNTER 2023-05-31 01:35 | Emergency (ER) | payer SELFPAY ==
[2023-05-31 01:43] VITALS: TEMP 97.9
[2023-05-31] MEDS ORDERED: ONDANSETRON 4 MG/2 ML VIAL IVP STA (02:21)
[2023-05-31] MEDS ORDERED: KETOROLAC 15 MG/ML 1 ML VIAL IVP STA (02:21)
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
[2023-05-31 02:37] LABS: Basophils % (A) 0 %; Eosinophils # (A) 0.2 k/uL (0-0.7); Eosinophils % (A) 2 %; HCT 44.2 % (34.0-46.0); HGB 14.1 gm/dL (11.4-16.0); Lymphocytes # (A) 5.8 k/uL (1.0-4.8); Lymphocytes % (A) 43 %; MCH 29.7 pg (25.0-35.0); MCHC 31.8 g/dL (31.0-37.0); MCV 93.3 fL (80.0-100.0); Mean Platelet Volume 8.2; Monocytes # (A) 0.9 k/uL (0-1.0); Monocytes % (A) 7 %; Neutrophils # (A) 6.3 k/uL (1.3-7.7); Neutrophils % (A) 47 %; Platelet Count 310 k/uL (150-450); RBC 4.74 m/uL (3.80-5.40); RDW 14.1 % (11.5-15.5); WBC 13.5 k/uL (3.8-10.6)
[2023-05-31 02:42] LABS: INR 0.9 (<1.2); Partial Thromboplastin Time 22.3 sec (22.0-30.0); Prothrombin Time 9.4 sec (9.0-12.0)
[2023-05-31 03:01] LABS: ALT 20 U/L (4-34); AST 28 U/L (14-36); African American GFR (CKD) >90 (>60 ml/min/1.73 sqM); Albumin 3.8 g/dL (3.5-5.0); Alkaline Phosphatase 69 U/L (38-126); Anion Gap 7 mmol/L; Blood Urea Nitrogen 12 mg/dL (7-17); Calcium 9.4 mg/dL (8.4-10.2); Carbon Dioxide 21 mmol/L (22-30); Chloride 106 mmol/L (98-107); Glucose 100 mg/dL (74-99); Magnesium 1.8 mg/dL (1.6-2.3); Non-African American GFR(CKD) >90 (>60 ml/min/1.73 sqM); Potassium 5.2 mmol/L (3.5-5.1); Sodium 134 mmol/L (137-145); Total Bilirubin 0.5 mg/dL (0.2-1.3); Total Protein 7.3 g/dL (6.3-8.2)
[2023-05-31 03:11] LABS: Appearance,Urine Clear (Clear); Color,Urine Light Yellow; Specific Gravity,Urine 1.025 (1.001-1.035)
[2023-05-31 03:12] LABS: Bilirubin,Urine Negative (Negative); Blood,Urine Negative (Negative); Glucose,Urine (UA) Negative (Negative); Ketones,Urine Negative (Negative); Leukocyte Esterase,Urine Moderate (Negative); Nitrite,Urine Negative (Negative); Protein,Urine Negative (Negative); Urobilinogen,Urine <2.0 mg/dL (<2.0)
[2023-05-31] MEDS ORDERED: MORPHINE SULFATE 4 MG/ML SYRINGE IVP STA (03:34)
[2023-05-31 03:38] LABS: Squamous Epithelial Cell,Urine 8 /hpf (0-4)
[2023-05-31 03:39] LABS: RBC,Urine 0 /hpf (0-5); WBC,Urine 11 /hpf (0-5)
[2023-05-31 03:40] LABS: Bacteria,Urine Moderate /hpf
--- NOTE | 2023-05-31 03:47 | XR ---
EXAM: XR Chest, 2 Views CLINICAL HISTORY: ITS.REASON XR Reason: Chest Pain TECHNIQUE: Frontal and lateral views of the chest. COMPARISON: No relevant prior studies available. FINDINGS: Lungs: No consolidation or mass. Pleural space: No effusion. Heart: No cardiomegaly. Bones/joints: No acute findings. IMPRESSION: No acute cardiopulmonary process.
[2023-05-31 04:48] VITALS: RESP 16
--- NOTE | 2023-05-31 04:54 | CT ---
EXAM: CT Abdomen and Pelvis Without Intravenous Contrast CLINICAL HISTORY: L flank pain TECHNIQUE: Axial computed tomography images of the abdomen and pelvis without intravenous contrast. CTDI is 19.5 mGy and DLP is 980.7 mGy-cm. This CT exam was performed using one or more of the following dose reduction techniques: automated exposure control, adjustment of the mA and/or kV according to patient size, and/or use of iterative reconstruction technique. COMPARISON: CT of the chest dated 03/16/[address] of the abdomen/pelvis dated 02/05/2019. FINDINGS: Lung bases: Mild bronchial wall thickening, which may represent infectious versus inflammatory airways disease. Stable metallic density in the posterior aspect of the left lower lobe. ABDOMEN: Liver: Hepatomegaly, measuring 20.4 cm in greatest craniocaudad dimension, as seen on prior study. Gallbladder and bile ducts: Status post cholecystectomy. No ductal dilation. Pancreas: Unremarkable. No ductal dilation. Spleen: Unremarkable. No splenomegaly. Adrenals: Unremarkable. No mass. Kidneys and ureters: Unremarkable. No renal stones. No hydronephrosis. Stomach and bowel: Colonic diverticulosis. No obstruction. No mucosal thickening. PELVIS: Appendix: No findings to suggest acute appendicitis. Bladder: Unremarkable. No stones. Reproductive: Fibroid uterus again noted. ABDOMEN and PELVIS: Intraperitoneal space: Unremarkable. No free air. No significant fluid collection. Bones/joints: No acute fracture. No dislocation. Soft tissues: Small fat-containing umbilical hernia. Vasculature: Unremarkable. No abdominal aortic aneurysm. Lymph nodes: No enlarged lymph nodes, allowing for lack of IV contrast. IMPRESSION: 1. No renal stones. No hydronephrosis. 2. Mild bronchial wall thickening, which may represent infectious versus inflammatory airways disease. 3. Stable metallic density in the posterior aspect of the left lower lobe. 4. Hepatomegaly, as seen on prior study. 5. Status post cholecystectomy. 6. Fibroid uterus again noted. 7. Colonic diverticulosis.
[2023-05-31] MEDS ORDERED: HYDROmorphone 0.5 MG/0.5 ML SYRINGE IVP STA (05:16)
[2023-05-31] MEDS ORDERED: traMADol 50 MG STARTER PACK 3 TAB BTL PO STA (05:16)
[2023-05-31 05:35] VITALS: BP 116/78; PULSE 82
== END 2023-05-31 05:30 | disposition home or self-care (01) ==
LOC: EC 01:35
DX: R07.89 Other chest pain (principal); D25.9 Leiomyoma of uterus, unspecified; K57.30 Diverticulosis of large intestine without perforation or abscess without bleeding; I25.2 Old myocardial infarction; F17.200 Nicotine dependence, unspecified, uncomplicated; Z88.0 Allergy status to penicillin
CPT/HCPCS: 36415; 93005; 80053; 83735; 84484; 85025; 85610; 85730; 81001; 87086; 71046; 74176; 99285; 96374; 96375 ×3; J2270; J2405; J1885; J1170

== ENCOUNTER → 2023-06-21 | Outpatient (CLI) | payer SELFPAY | END | disposition home or self-care (01) | LOC: LABWHC1 13:53 | PROVIDERS: ATTEND Podiatrist | DX: M25.571 Pain in right ankle and joints of right foot (principal); S90.01XD Contusion of right ankle, subsequent encounter; S86.011D Strain of right Achilles tendon, subsequent encounter; S80.11XD Contusion of right lower leg, subsequent encounter; M76.61 Achilles tendinitis, right leg; M66.361 Spontaneous rupture of flexor tendons, right lower leg; X58.XXXD Exposure to other specified factors, subsequent encounter | CPT/HCPCS: 36415; 80323 ==

== ENCOUNTER → 2023-06-22 | Day surgery (SDC) | payer OTHER ==
[2023-06-14 13:06] VITALS: BMI 38.4
[~2023-06-22] MED LIST: DEXAMETHASONE SOD PHOSPHATE 4 MG/ML 1 ML VIAL IV ONE; DEXAMETHASONE SOD PHOSPHATE 4 MG/ML 1 ML VIAL ONE; HYDROcodone/APAP 7.5-325MG 1 EACH TAB ONE; HYDROmorphone (PF) 1 MG/ML ONE; HYDROmorphone 0.5 MG/0.5 ML SYRINGE IVP PRN; KETOROLAC 15 MG/ML 1 ML VIAL ONE; LACTATED RINGERS 1,000 ML IV SCH; LIDOCAINE 1% (10MG/ML) FOR IV START INTRADERMA PRN; LIDOCAINE 2% INJ 20 MG/ML (2 ML VIAL) ONE; MIDAZOLAM 2 MG/2 ML VIAL IVP ONE; MIDAZOLAM 2 MG/2 ML VIAL ONE; ONDANSETRON 4 MG/2 ML VIAL IVP ONE; PROPOFOL 10 MG/ML 20 ML VIAL IV ONE; ROPIVACAINE 5 MG/ML 30 ML VIAL ONE; SCOPOLAMINE 1 MG/72 HR PATCH TRANSDERM ONE; SODIUM CHLORIDE 0.9% (PF) 10 ML VIAL ONE; SUCCINYLCHOLINE CHLORIDE 200 MG/10 ML VIAL IV ONE; ceFAZolin 1,000 MG in SODIUM CHLORIDE 0.9% 1,000 ML IRRIGATION ONE; droPERidol 5 MG/2 ML VIAL IVP ONE; fentaNYL (PF) 50 MCG/1 ML VIAL IVP ONE; fentaNYL (PF) 50 MCG/ML 2 ML AMP ONE
[2023-06-22 06:45] LABS: Basophils % (A) 0 %; Eosinophils # (A) 0.2 k/uL (0-0.7); Eosinophils % (A) 2 %; HGB 13.7 gm/dL (11.4-16.0); Lymphocytes # (A) 2.6 k/uL (1.0-4.8); Lymphocytes % (A) 25 %; MCH 30.9 pg (25.0-35.0); MCHC 33.5 g/dL (31.0-37.0); MCV 92.2 fL (80.0-100.0); Mean Platelet Volume 7.6; Monocytes # (A) 0.6 k/uL (0-1.0); Monocytes % (A) 6 %; Neutrophils # (A) 6.6 k/uL (1.3-7.7); Neutrophils % (A) 66 %; Platelet Count 240 k/uL (150-450); RBC 4.45 m/uL (3.80-5.40); RDW 13.6 % (11.5-15.5)
[2023-06-22 06:57] LABS: ALT 19 U/L (4-34); AST 21 U/L (14-36); African American GFR (CKD) >90 (>60 ml/min/1.73 sqM); Albumin 3.6 g/dL (3.5-5.0); Alkaline Phosphatase 73 U/L (38-126); Anion Gap 6 mmol/L; Blood Urea Nitrogen 13 mg/dL (7-17); Calcium 8.9 mg/dL (8.4-10.2); Carbon Dioxide 22 mmol/L (22-30); Chloride 107 mmol/L (98-107); Glucose 115 mg/dL (74-99); Non-African American GFR(CKD) >90 (>60 ml/min/1.73 sqM); Potassium 4.5 mmol/L (3.5-5.1); Sodium 135 mmol/L (137-145); Total Bilirubin 0.4 mg/dL (0.2-1.3); Total Protein 6.6 g/dL (6.3-8.2)
--- NOTE | 2023-06-22 08:08 | P.ANPRN ---
Procedure Note - Anesthesia - Nerve Block Performed Right Adductor Canal Single Time Out Performed: Yes Date of Procedure: 06/22/23 Procedure Start Time: 06:52 Procedure Stop Time: 06:59 Location of Patient: PreOp Indication: Acute Post-Operative Pain, Requested by Surgeon Specifically requested for management of pain by DrStephanie: Chacorta Orellana Sedation Type: Sedate with meaningful contact maintained Preparation: Sterile Prep Position: Supine Needle Types: Pajunk Needle Gauge: 21 Ultrasound used to visualize needle placement: Yes Ultrasound used to observe medication spread: Yes Injectate: 0.5% Ropivacaine (see comment for volume) (15ml +15 ml NS + 4mg dexamethasone) Blood Aspirated: No Pain Paresthesia on Injection Noted: No Resistance on Injection: Normal Image Stored and Saved: Yes Events: Uneventful and Well Tolerated
--- NOTE | 2023-06-22 08:10 | P.ANPRN ---
Procedure Note - Anesthesia - Nerve Block Performed Right Popliteal Single Time Out Performed: Yes Date of Procedure: 06/22/23 Procedure Start Time: 07:00 Procedure Stop Time: 07:07 Location of Patient: PreOp Indication: Acute Post-Operative Pain, Requested by Surgeon Specifically requested for management of pain by DrStephanie: Chacorta Orellana Sedation Type: Sedate with meaningful contact maintained Position: Left Lateral Needle Types: Pajunk Needle Gauge: 21 Ultrasound used to visualize needle placement: Yes Ultrasound used to observe medication spread: Yes Injectate: 0.5% Ropivacaine (see comment for volume) (15 ml + 15 ml NS +4mg dexamethasone) Blood Aspirated: No Pain Paresthesia on Injection Noted: No Resistance on Injection: Normal Image Stored and Saved: Yes Events: Uneventful and Well Tolerated
[2023-06-22 08:42] VITALS: TEMP 97.1
--- NOTE | 2023-06-22 08:57 | P.OP ---
Date of Procedure: 06/22/23 Preoperative Diagnosis: 1. Chronic Achilles tendon rupture right leg 2. Achilles tendinosis Right Leg 3. Gastroc equinus right leg Postoperative Diagnosis: 1. Same 2. Same 3. Same Procedure(s) Performed: 1. Secondary repair with allograft right Achilles tendon 2. Gastroc recession right leg Implants: Arthrex [id number] tissue allograft Anesthesia: KELLIE Surgeon: Chacorta rOellana Estimated Blood Loss (ml): 1 Pathology: none sent Condition: stable Disposition: PACU Description of Procedure: Prior to the patient being brought to the operating room, anesthesia administered nerve block on the surgical extremity. Once completed, the patient was taken into the operating room. Timeout was taken to confirm correct patient identifiers, correct laterality of surgery, and correct procedure. When all staff in the room were in agreement with the timeout, the patient was induced and placed under general anesthesia. The patient was then placed in the prone position on the operating room table. Appropriate padding was placed beneath the patient's face as well as in the thoracic area. Once anesthesia was satisfied with the patient positioning, a well-padded tourniquet was placed on the thigh. Then the leg was prepped and draped in the usual manner. The leg was exsanguinated and the tourniquet inflated to 250 mmHg. Attention was directed over the posterior aspect of the leg, where the gastroc recession was performed. A linear midline incision was made distal to the gastroc muscle belly. The incision was deepened down to the subcutaneous layer careful to identify, avoid, and retract any neurovascular structures and cauterize any bleeding vessels. Blunt dissection was carried down to level the deep fascia. The fascia was incised and then bluntly dissected off the gastroc aponeurosis. A transverse incision was made through the aponeurosis from medial to lateral. Once completed the ankle was dorsiflexed and a visible gap. And the aponeurosis, indicating a full release. The wound is thoroughly irrigated. The subcutaneous layer was closed with 4-0 Vicryl. And skin closure done with thelma Then attention directed over the posterior ankle, over the Achilles tendon, and the watershed area. A linear incision was made medial to the midline. It was deepened down to the subcutaneous tissue careful to identify, avoid, and retract any neurovascular structures and cauterize any bleeding vessels. Blunt dissection was continued down to the peritenon. The peritenon was incised and carefully reflected medially and laterally to expose the tendon. The area of the tendon was palpated with the patient was injured, there was a soft area in the mid substance with medial lateral thickening. 2 semielliptical converging incisions were utilized in the central aspect of the tendon. It was done full- thickness to the tendon with the central portion being excised in total. Then the wound is irrigated thoroughly with antibiotic saline. Arthrex suture tape was used to reapproximate the medial lateral aspects of the tendon. Then an Arthrex AFLEX 500 allograft was positioned over the repair site. It was trimmed off proper fit and then 4-0 Monocryl was used to secure it in place. The peritenon was then repaired over the graft with 4-0 Monocryl. Subcutaneous closure was done with 4-0 Monocryl. Skin closure done with thelma. An Arthrex jumpstart dressing was placed over both incisions. A bulky dry dressings applied to the right leg. The tourniquet was released and capillary refill return to all digits on the right foot. The patient was then placed in a well- padded, well molded posterior mold/sugar tong splint. Ankle was held in neutral position until it was dried. The patient was then rolled onto the transfer table back in the supine position. Anesthesia was reversed and the patient was taken recovery with vital signs stable.
[2023-06-22 09:19] VITALS: RESP 16
[2023-06-22 10:44] VITALS: BP 134/76; PULSE 82
== END | disposition home or self-care (01) ==
LOC: OR 05:33
PROVIDERS: ATTEND Podiatrist
DX: S86.011A Strain of right Achilles tendon, initial encounter (principal); M76.61 Achilles tendinitis, right leg; M21.961 Unspecified acquired deformity of right lower leg; G89.18 Other acute postprocedural pain; X58.XXXA Exposure to other specified factors, initial encounter; Z79.899 Other long term (current) drug therapy
CPT/HCPCS: 27687; 27654; 64447; 81025; 64445; 80053; 85025; Q4125; J2250; J0330; J1100; J0690 ×2; J2405; J3010 ×2; J1170; J2795; J1885; J2704; J2001

== ENCOUNTER → 2023-11-14 | Outpatient (CLI) | payer OTHER ==
[2023-11-14 14:14] VITALS: BP 125/84; PULSE 113; RESP 16
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
== END ==
LOC: PNWHC3 08:33
PROVIDERS: ATTEND Specialist
DX: G90.50 Complex regional pain syndrome I, unspecified (principal); G57.81 Other specified mononeuropathies of right lower limb; M19.90 Unspecified osteoarthritis, unspecified site; I25.2 Old myocardial infarction; F41.9 Anxiety disorder, unspecified; F17.200 Nicotine dependence, unspecified, uncomplicated; Z88.0 Allergy status to penicillin
CPT/HCPCS: 99211

== ENCOUNTER 2023-11-27 11:30 | Day surgery (SDC) | payer OTHER ==
[~2023-11-27 11:30] MED LIST changes: -DEXAMETHASONE SOD PHOSPHATE 4 MG/ML 1 ML VIAL IV ONE; -DEXAMETHASONE SOD PHOSPHATE 4 MG/ML 1 ML VIAL ONE; -HYDROcodone/APAP 7.5-325MG 1 EACH TAB ONE; -HYDROmorphone (PF) 1 MG/ML ONE; -HYDROmorphone 0.5 MG/0.5 ML SYRINGE IVP PRN; -KETOROLAC 15 MG/ML 1 ML VIAL ONE; -LIDOCAINE 1% (10MG/ML) FOR IV START INTRADERMA PRN; -LIDOCAINE 2% INJ 20 MG/ML (2 ML VIAL) ONE; -MIDAZOLAM 2 MG/2 ML VIAL IVP ONE; -MIDAZOLAM 2 MG/2 ML VIAL ONE; -ONDANSETRON 4 MG/2 ML VIAL IVP ONE; -PROPOFOL 10 MG/ML 20 ML VIAL IV ONE; -ROPIVACAINE 5 MG/ML 30 ML VIAL ONE; -SCOPOLAMINE 1 MG/72 HR PATCH TRANSDERM ONE; -SODIUM CHLORIDE 0.9% (PF) 10 ML VIAL ONE; -SUCCINYLCHOLINE CHLORIDE 200 MG/10 ML VIAL IV ONE; -ceFAZolin 1,000 MG in SODIUM CHLORIDE 0.9% 1,000 ML IRRIGATION ONE; -droPERidol 5 MG/2 ML VIAL IVP ONE; -fentaNYL (PF) 50 MCG/1 ML VIAL IVP ONE; -fentaNYL (PF) 50 MCG/ML 2 ML AMP ONE
[2023-11-27 12:07] VITALS: TEMP 97.4
[2023-11-27] MEDS ORDERED: MIDAZOLAM 2 MG/2 ML VIAL ONE (13:09)
[2023-11-27] MEDS ORDERED: methylPREDNISolone ACETATE 80 MG/ML 1 ML VIAL ONE (13:09)
[2023-11-27] MEDS ORDERED: ROPIVACAINE 5MG/ML 20ML VIAL ONE (13:09)
[2023-11-27] MEDS ORDERED: fentaNYL (PF) 50 MCG/ML 2 ML AMP ONE (13:09)
[2023-11-27] MEDS ORDERED: IV FLUID CONTINUATION 1,000 ML IV ONE (13:40)
--- NOTE | 2023-11-27 13:44 | P.PCN ---
Date of Procedure: 11/27/23 Procedure(s) Performed: preop Diagnosis : Severe ,and chronic right ankle pain post op Diadnosis : Severe and chronic right ankle pain procedure : Right ankle block ( involve block of the five nerves that innervate the ankle 1- saphenous nerve 2 -posterior tibial nerve . 3- superficial peroneal nerve 4- deep peroneal nerve 5- sural nerve complications :none anesthesia = moderate sedations with Versed 2 mg and fentanyl 100 g ( sedations start 1309 , end at 1328 ) Indication for the procedure: The patient with a history of chronic right foot pain diagnosed with complex regional pain syndrome type I 1 patient had no relief after the lumbar sympathetic block and she had good result with the right ankle block which was done in the past for this reason we discussed with the patient the option of doing right ankle block procedure risk and benefit, incl uding but not limited to risk of infection and bleeding, and ALLERGIC reaction to the medication and not complete pain relief discussed with the patient and she agreed with the preceding . Description of the procedure; the right ankle area prepped with chlorhexidine 3 times. Then under strict sterile technique using the 25-gauge needle first I did the right posterior tibial nerve block the needle placed and directed anteriorly at the cephalic border of the medial malleolus, just medial to the Achilles tendon 5 ML of 0.5% ropivacaine mixed with 20 mg of Depomedrol injected after negative aspiration then after that , I did the right saphenous nerve block by injecting 5 ML at the location of the right saphenous nerve using 25- gauge needle 0.5% of Marcaine injected after negative aspiration, then the deep peroneal nerve block done by placing the 25-gauge needle between the tendon of the anterior tibial and the extensor Hallucis longus muscles , a total of 3 mL of 0.5% Ropivacain mixed with 20 mg of Depomedrol injected after negative aspiration, then after that I blocked the superficial peroneal nerve , by using 25-gauge needle, the skin infiltration of the subcutaneous tissue between the medial malleolus and the lateral malleolus, finally I did the right sural nerve block by injecting 5 ML of 0.5% Ropivacaine anterior immediately lateral to the Achilles tendon at the cephalic border of the lateral malleolus the Ropivacaine was mixed with the 40 mg of Depomedrol ,after negative aspirations, patient tolerated the procedure well without any complication and discharged home in stable condition , and she will follow up pain clinic in 2-4 weeks
[2023-11-27 14:37] VITALS: BP 139/102; PULSE 93; RESP 14
== END 2023-11-27 14:28 | disposition home or self-care (01) ==
LOC: ORPAIN 11:30
PROVIDERS: ATTEND Specialist
DX: M25.571 Pain in right ankle and joints of right foot (principal); G89.29 Other chronic pain
CPT/HCPCS: 64450 ×2; 99152; 81025; J2250; J1040; J3010; J2795; 99153

== ENCOUNTER → 2024-01-09 | Outpatient (CLI) | payer OTHER ==
[2024-01-09 13:56] VITALS: BP 143/73; PULSE 82; RESP 15; TEMP 98.6
--- NOTE | 2024-01-09 14:00 | P.PAINPG ---
PQRS Measure Charge Sheet Comment: HISTORY OF PRESENT ILLNESS: A 48 yr old female presents today w severe and chronic R ankle pain secondary to CRPS/ achilles rupture repair for evaluation s/p R Ankle Nerve Block. pts tates she experienced 85 % pain relief x 6 wks s/p procedure. Pt states pain level is provoked at 2/10 in intensity, constant, localized in the R ankle, stabbing in character w occasional shooting pain towards up the RLE. Pain is provoked by walking/ standing for periods >20 min. Pain is alleviated by medications, PT x 3 wks in Aug 2023, alternating heat & ice, topical, repositioning and rest. Interventional procedures include R Ankle Nerve Block x1 Medications include Lyrica, Adams, Tyl, Ibu REVIEW OF ORGAN SYSTEMS: CONSTITUTIONAL: No fevers or chills. No recent weight loss. NEUROLOGICAL: + numbness and tingling along the distal extremities. No seizure disorders or headaches. MUSCULOSKELETAL: + pain PSYCHIATRIC: Denies current depression or suicidal thoughts. Physical Examinations : Constitutional : Cooperative , not in acute distress . Neurologic : Cranial nerve II to XII intact. No focal neurological deficits. Psychiatric : alert & oriented x 3. Matching mood & appropriate affect. Judgment & insight intact. Musculoskeletal : Cervical Spine Motor strength in the deltoid and biceps: Normal right side. Normal Left side Motor strength biceps and the wrist extensors: Normal right side . Normal left side Motor strength in the triceps muscle: Normal right side. Normal left side Deep tendon reflexes: Normal at the biceps. Normal at Brachioradialis. Normal at triceps Vertebral body tenderness to deep palpation over Cervical facet loading test: positive bilaterally Spurling test: positive bilaterally Neck distraction test: positive bilaterally Dorita sign: positive bilaterally Lumbar spine +R Ankle incisional scar, diffuse TTP Motor strength lower extremities ,thigh and legs 5/5 Right side , 5/5 Left side Deep tendon reflexes : Normal Knee Jerk. Normal Ankle Jerk Vertebral body tenderness over Bernal Test positive Lumbar facet Loading Test: positive Right / positive Left Range of motion of the lumbar spine Flexion 30 degrees, extension 10 degrees Straight Leg Raise test: Left/ Right positive at degrees Taras test: positive right / positive left. Severe tenderness over the Sacroiliac joint on the Right / Left sides Gaenslen test: positive bilaterally Seated flexion test: positive bilaterally. Sacral spine : Severe tenderness over the Sacroiliac joint: right side / left side Range of motion: Flexion of the lumbar spine <60 degrees Range of motion: Extension of the lumbar spine <20 degrees Gaenslen's Test positive Taras test: positive right side / left side Thigh Thrust Test Sacral Thrust Test Imaging: None on file Assessment/ Plan : R Ankle Neuropathy Recommendation of medication management. Lyrica 50mg #60 w 1 RF. Use, side effects, adverse reactions and safe storage discussed. Opiate agreement signed 11/14/23. Pt has standing/ walking job she will return to. No heaving lifting required and may do so at pt's discretion. All questions answered. I have spent greater than 30 minutes on patient care today. Dr Russ was available by phone for the evaluation of this patient. The time was used to review the medical records including relevant urine studies and Prescription history (MAPs), review of the available imaging, evaluation and examination of the patient, coordination of care with the medical staff and if applicable referring physicians, as well as creation of the medical record PQRS Narrative: Smoking Status Current every day smoker Hx Alcohol Use (MH) No Home Medications: Ambulatory Orders Acetaminophen Tab [Tylenol] 325 mg PO Q4-6H PRN 11/21/23 Pregabalin [Lyrica] 50 mg PO BID 30 Days #60 cap 01/09/24 Controlled Substance Measures - Controlled Substance Measures Is patient prescribed a controlled substance at discharge?: Yes When asked, does pt state using other controlled substances?: No If prescribed controlled substance>3 days was MAPS reviewed?: Yes
== END ==
LOC: PNWHC3 12:38
PROVIDERS: ATTEND Specialist
DX: M79.2 Neuralgia and neuritis, unspecified (principal); F17.200 Nicotine dependence, unspecified, uncomplicated; Z88.0 Allergy status to penicillin
CPT/HCPCS: 99211

== ENCOUNTER 2024-01-12 14:09 | Emergency (ER) | payer OTHER ==
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
[2024-01-12] MEDS: KETOROLAC 15 MG/ML 1 ML VIAL IM STA (14:45)
[2024-01-12 14:51] VITALS: BP 130/93; PULSE 119; RESP 18; TEMP 98.3
--- NOTE | 2024-01-12 15:14 | XR ---
EXAMINATION TYPE: XR ankle complete 3 views RT, XR foot complete 3 views RT DATE OF EXAM: 01/12/2024 COMPARISON: NONE HISTORY: 48-year-old female for ankle pain after fall FINDINGS: Ankle: Circumferential soft tissue swelling. Ankle mortise appears congruent with preservation of the distal tibiofibular overlap. Talar dome is intact. No acute fracture, subluxation, or dislocation seen. Destin e faint calcifications in the distal Achilles tendon. Subtalar joint is aligned. Foot: Generalized soft tissue swelling. Some lucency along the anterior calcaneus on the lateral view. Ther e are nondisplaced fractures at the second, third, and fourth metatarsal bases. No midfoot malalignme nt is seen. IMPRESSION: 1. Ankle: Circumferential soft tissue swelling. No acute osseous abnormality seen. 2. Foot: Generalized soft tissue swelling. Nondisplaced fractures at the base of the second, third, a nd fourth metatarsals. Possible additional nondisplaced fracture anterior calcaneus.
--- NOTE | 2024-01-12 16:28 | CT ---
EXAMINATION TYPE: CT foot RT wo con DATE OF EXAM: 01/12/2024 COMPARISON: Radiograph same day HISTORY: 48-year-old female Evaluate RT foot further for fracture xrays taken TECHNIQUE: Contiguous axial scanning of the right foot without IV contrast. Coronal and sagittal rich nstructions performed. 3-D reconstructions generated on a dedicated workstation. CT DLP: 140.8 mGycm Automated exposure control for dose reduction was used. FINDINGS: There is mild tendinosis with fusiform thickening of the middle third Achilles tendon up to 1.1 cm. F aint calcifications in the distal Achilles tendon suggesting chronic tendinosis and old injury. There is a bipartite os peroneum with age likely accounting for the irregularity on radiographs. No c alcaneal fracture is seen. Subtalar joint alignment. There are nondisplaced fractures involving the base of the second, third, fourth, and fifth metatarsa ls. Intra-articular extension into the intermetatarsal joints and TMT joints. Prominent circumferential midfoot soft tissue swelling. IMPRESSION: 1. FOREFOOT AND MIDFOOT SOFT TISSUE SWELLING WITH UNDERLYING NONDISPLACED FRACTURES AT THE BASE OF TH E SECOND THROUGH FIFTH METATARSALS. NO MIDFOOT MALALIGNMENT. 2. NO CALCANEAL FRACTURES SEEN. 3. MILD TENDINOSIS AT THE MIDDLE THIRD ACHILLES TENDON.
== END 2024-01-12 17:16 | disposition home or self-care (01) ==
LOC: EC 14:09
DX: S92.324A Nondisplaced fracture of second metatarsal bone, right foot, initial encounter for closed fracture (principal); S92.334A Nondisplaced fracture of third metatarsal bone, right foot, initial encounter for closed fracture; S92.344A Nondisplaced fracture of fourth metatarsal bone, right foot, initial encounter for closed fracture; I25.2 Old myocardial infarction; F17.200 Nicotine dependence, unspecified, uncomplicated; Z86.59 Personal history of other mental and behavioral disorders; Z88.0 Allergy status to penicillin; W18.30XA Fall on same level, unspecified, initial encounter
CPT/HCPCS: 73610; 73630; 73700; 99284; 96372; J1885

== ENCOUNTER 2024-07-09 14:59 | Observation (INO) | payer OTHER ==
[2024-07-09 16:03] LABS: Basophils # (A) 0.1 k/uL (0-0.2); Basophils % (A) 1 %; Eosinophils # (A) 0.1 k/uL (0-0.7); Eosinophils % (A) 1 %; HCT 44.5 % (34.0-46.0); HGB 14.7 gm/dL (11.4-16.0); Lymphocytes # (A) 3.4 k/uL (1.0-4.8); Lymphocytes % (A) 31 %; MCHC 32.9 g/dL (31.0-37.0); MCV 91.2 fL (80.0-100.0); Mean Platelet Volume 7.5; Monocytes # (A) 0.5 k/uL (0-1.0); Monocytes % (A) 4 %; Neutrophils # (A) 6.8 k/uL (1.3-7.7); Neutrophils % (A) 62 %; Platelet Count 333 k/uL (150-450); RBC 4.88 m/uL (3.80-5.40); RDW 13.8 % (11.5-15.5); WBC 10.9 k/uL (3.8-10.6)
[2024-07-09 16:22] LABS: ALT 14 U/L (4-34); African American GFR (CKD) >90 (>60 ml/min/1.73 sqM); Anion Gap 7 mmol/L; Blood Urea Nitrogen 7 mg/dL (7-17); Calcium 9.3 mg/dL (8.4-10.2); Carbon Dioxide 18 mmol/L (22-30); Chloride 109 mmol/L (98-107); Glucose 106 mg/dL (74-99); INR 0.9 (<1.2); Lipase 110 U/L (23-300); Non-African American GFR(CKD) >90 (>60 ml/min/1.73 sqM); Partial Thromboplastin Time 24.9 sec (22.0-30.0); Prothrombin Time 10.2 sec (10.0-12.5); Sodium 134 mmol/L (137-145); Total Bilirubin 0.6 mg/dL (0.2-1.3)
[2024-07-09 16:26] LABS: AST 26 U/L (14-36); Potassium 4.5 mmol/L (3.5-5.1)
[2024-07-09 16:27] LABS: Albumin 4.1 g/dL (3.5-5.0); Alkaline Phosphatase 75 U/L (38-126); Magnesium 1.9 mg/dL (1.6-2.3)
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
[2024-07-09 16:31] LABS: NT-Pro-B-Type Natriuretic Pept 30 pg/mL
[2024-07-09] MEDS: ONDANSETRON 4 MG/2 ML VIAL IVP STA (16:54)
[2024-07-09] MEDS: MORPHINE SULFATE 4 MG/ML SYRINGE IVP STA ×2 (16:55→22:06)
[2024-07-09] MEDS: SODIUM CHLORIDE 0.9% 1,000 ML IV ONE (16:55)
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
[2024-07-09] MEDS ORDERED: NALOXONE 0.4 MG/ML 1 ML VIAL IV PRN (18:50)
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
[2024-07-09] MEDS ORDERED: ALPRAZolam 0.25 MG TAB PO PRN (23:55)
[2024-07-10] MEDS: ZOLPIDEM 5 MG TAB PO PRN (01:27)
[2024-07-10] MEDS: SODIUM CHLORIDE 0.9% 1,000 ML IV SCH ×2 (08:34)
[2024-07-10 09:09] LABS: BUN/Creat Ratio 12.33 Ratio (12.00-20.00); Blood Urea Nitrogen 7.4 mg/dL (9.0-27.0); Calcium 8.1 mg/dL (8.7-10.3); Carbon Dioxide 20.9 mmol/L (21.6-31.8); Chloride 109 mmol/L (96-109); Chol/HDL Ratio 5.44 Ratio; Glucose 106 mg/dL (70-110); LDL Cholesterol,Calculated 105.2 mg/dL (0.0-131.0); Potassium 4.4 mmol/L (3.5-5.5); Sodium 138 mmol/L (135-145)
[2024-07-10 09:10] LABS: Basophils # (A) 0.07 X 10*3/uL (0.00-0.10); Basophils % (A) 0.8 %; Eosinophils # (A) 0.18 X 10*3/uL (0.04-0.35); HCT 40.7 % (37.2-46.3); HGB 13.3 g/dL (12.0-15.0); Lymphocytes % (A) 40.3 %; MCH 29.3 pg (27.0-32.0); MCHC 32.7 g/dL (32.0-37.0); MCV 89.6 FL (80.0-97.0); Mean Platelet Volume 9.5 FL (9.5-12.2); Monocytes # (A) 0.72 X 10*3/uL (0.20-1.00); Monocytes % (A) 8.1 %; NRBC Per 100 WBC 0 X 10*3/uL (0.00-0.01); Neutrophils # (A) 4.32 X 10*3/uL (1.80-7.70); Neutrophils % (A) 48.4 %; Platelet Count 273 X 10*3/uL (140-440); RBC 4.54 X 10*6/uL (4.10-5.20); RDW 14.5 % (11.5-14.5); WBC 8.93 X 10*3/uL (4.50-10.00)
[2024-07-10] MEDS: ASPIRIN 81 MG PO SCH (09:45)
[2024-07-10] MEDS: ENOXAPARIN 40 MG/0.4 ML SYRINGE SQ SCH (09:45)
[2024-07-10] MEDS: HYDROcodone/APAP 5-325MG 1 EACH TAB PO PRN (10:53)
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
[2024-07-10] MEDS: MORPHINE SULFATE 4 MG/ML SYRINGE IV PRN (12:01)
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
[2024-07-10] MEDS: ATORVASTATIN 40 MG TAB PO SCH (20:23)
[2024-07-11 02:05] VITALS: RESP 17
[2024-07-11 08:35] VITALS: BP 124/81; PULSE 91; TEMP 98.4
--- NOTE | 2024-07-11 10:51 | CA ---
Stress Echo Report Remedios Putnam Age: 49 Gender: F : 1975 Exam Date: 07/11/2024 10:10 Exam Location: [facility] Ht (in): 63 Wt (lb): 220 Ordering Physician: Jackie Becerril Referring Physician: [id number] Live In Housekeeper Nanny: Lisa Pizarro RDCS Technologist Procedure CPT: Indication: Chest Pain ICD-9 Codes: Rhythm: Patient History: CHEST PAIN, SYNCOPE, DIFFICULTY IN BREATHING, PALPITATIONS, FAMILY HX OF HEART DISEASE, CURRENT SMOKER, ASTHMA Cardiac Medications: Medications in past 24 hours: Contrast: Definity Stress Results Protocol: Collin Total dose(mL): 3 Exercise Duration (min:sec): 4:[address] Depression (mm): Angina Score: Muller Score: METS: 6.0 Resting HR: 85 Resting BP: 118 / 72 Peak HR: 142 Peak BP: 184 / 70 Max Predicted HR: 171 83 % Max Predicted HR Target HR: 145 Double Product: [id number] Stress Summary: BP Response: Reason for Termination: MAX EXERTION/ UNABLE TO CONTINUE Cardiac Symptoms: CHEST TIGHTNESS,DIFFICULTY IN BREATHING ECG Analysis Resting ECG: Stress ECG: Arrhythmia: Echo Analysis Resting Echo: Peak Echo Analysis: MEASUREMENTS (Male/Female) Normal Values CONCLUSIONS Baseline EKG revealed a normal sinus rhythm without significant ST-T changes. Patient walked on a standard Collin protocol for a total duration of 4 minutes 14 seconds and achieved a maximal heart rate of 143 bpm which is more than 85% almost 85% of predicted maximal. She developed fatigue and shortness of breath and also complained of some chest tightness and difficulty breathing. EKG did not reveal any ST segment changes to indicate ischemia. There was no arrhythmia. Her symptoms were atypical and also demonstrated exercise intolerance and shortness of breath probably related to pulmonary etiology. No EKG changes of significance to indicate ischemia. This is a negative stress test with limited exercise capacity by EKG criteria Baseline echo images revealed normal wall motion and wall thickening of all segments. Echo contrast was used to enhance quality of images. At peak exercise there was good augmentation of left ventricular wall motion and wall thickening of wall segment suggesting that there is no evidence of any stress- induced ischemia on the study. Final impression: Limited exercise capacity with a negative stress test by EKG criteria at almost 85% of her predicted maximal heart rate. At the above-mentioned stress level there is no evidence to suggest any ischemia by on the basis of the stress echocardiogram Dr. Stefanie August MD (Electronically Signed) Final Date: 11 July 2024 10:49
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
== END 2024-07-11 12:11 | disposition home or self-care (01) ==
LOC: EC 14:59 → 6NMEDSUR 18:52
PROVIDERS: ADMIT Internal Medicine; ATTEND Internal Medicine
DX: R07.89 Other chest pain (principal); E87.1 Hypo-osmolality and hyponatremia; E87.20 Acidosis, unspecified; R55 Syncope and collapse; I25.10 Atherosclerotic heart disease of native coronary artery without angina pectoris; J44.9 Chronic obstructive pulmonary disease, unspecified; D72.829 Elevated white blood cell count, unspecified; E78.1 Pure hyperglyceridemia; M54.50 Low back pain, unspecified; M79.602 Pain in left arm; M79.601 Pain in right arm; Z18.10 Retained metal fragments, unspecified; R61 Generalized hyperhidrosis; I25.2 Old myocardial infarction; F17.210 Nicotine dependence, cigarettes, uncomplicated; Z79.82 Long term (current) use of aspirin; Z88.0 Allergy status to penicillin; Z87.828 Personal history of other (healed) physical injury and trauma
CPT/HCPCS: 36415; 71046; 80048; 80053; 80061; 83690; 83735; 83880; 84484; 85025; 85379; 85610; 85730; 93005; 93306; 93351; 96361; 96372; 96374; 96375; 96376; 99285

== ENCOUNTER → 2024-07-17 | Outpatient (CLI) | payer OTHER | END | disposition home or self-care (01) | LOC: LABWHC1 13:37 | PROVIDERS: ATTEND Nurse Practitioner | DX: R00.2 Palpitations (principal) | CPT/HCPCS: 36415; 84443 ==